=== PATIENT | male | born 1990 | race Caucasian/White ===

== ENCOUNTER 2024-08-13 14:51 | Emergency (ER) | payer BC, MEDICAID ==
[~2024-08-13] VITALS: Ht 185.4 cm; Wt 77.2 kg
[~2024-08-13 14:51] MED LIST: CLON-371 PO; CLON-529 PO; DICY10CA88 PO; DULO-31 PO; IBUP-1051 PO; NALT380S2 IM; PROM25TA14 PO; SYN0.1T PO
[2024-08-13 14:59] VITALS: BP 135/81; PULSE 97; RESP 16; TEMP 97.7; O2SAT 99
[2024-08-13] MEDS: lactulose 20gm/30ml cup PO ONE (16:18)
[2024-08-13] MEDS ORDERED: LACT10SO78 PO (16:21)
== END 2024-08-13 16:30 | disposition home or self-care (01) ==
LOC: ER 14:52
DX: K59.00 Constipation, unspecified (principal); E03.9 Hypothyroidism, unspecified; F11.90 Opioid use, unspecified, uncomplicated; F14.90 Cocaine use, unspecified, uncomplicated; F15.90 Other stimulant use, unspecified, uncomplicated
CPT/HCPCS: 74018; 99283